=== PATIENT | female | born 1945 | race Two or more races ===

== ENCOUNTER 2019-10-28 18:02 | Inpatient (IN) | payer MEDICARE, OTHER ==
[~2019-10-28] VITALS: Ht 160 cm; Wt 67.4 kg
[2019-10-28] MEDS ORDERED: CHOL3000 PO (18:18)
[2019-10-28] MEDS ORDERED: POTA10CA43 PO (18:18)
[2019-10-28] MEDS ORDERED: GLUC1KIT IJ (18:18)
[2019-10-28] MEDS ORDERED: MELA3TAB63 PO (18:18)
[2019-10-28] MEDS ORDERED: INSU100V10 SQ (18:18)
[2019-10-28] MEDS ORDERED: ATOR40TA PO (18:18)
[2019-10-28] MEDS ORDERED: ESCI10TA PO (18:18)
[2019-10-28] MEDS ORDERED: LOSA50TA39 PO (18:18)
[2019-10-28] MEDS ORDERED: CARV12.52 PO (18:18)
[2019-10-28] MEDS ORDERED: MULT1TAB73 PO (18:18)
[2019-10-28] MEDS ORDERED: ISOS10TA2 PO (18:28)
[2019-10-28] MEDS ORDERED: POLY17PO4 PO (18:28)
[2019-10-28] MEDS ORDERED: DOCU100C36 PO (18:28)
[2019-10-28] MEDS ORDERED: PANT40TA4 PO (18:28)
[2019-10-28] MEDS ORDERED: BISA10SU61 RC (18:28)
[2019-10-28] MEDS ORDERED: TICA90TA PO (18:28)
[2019-10-28] MEDS ORDERED: IPRA0.2S48 IH (18:28)
[2019-10-28] MEDS ORDERED: FERR325T23 PO (18:28)
[2019-10-28] MEDS ORDERED: ACET-2154 PO (18:28)
[2019-10-28 18:29] LABS: BASOPHILS # (AUTO) 0.1 K/uL (0.0-8.0); BASOPHILS % (AUTO) 2.1 % (0.0-2.0); EOSINOPHILS # (AUTO) 0.4 K/uL (0.0-0.7); HEMATOCRIT 27.4 % (31.2-41.9); LYMPHOCYTES # (AUTO) 1.1 K/uL (20.0-40.0); LYMPHOCYTES % (AUTO) 16.7 % (20.5-51.5); MEAN CORPUSCULAR HEMOGLOBIN 31.7 uug (24.7-32.8); MEAN CORPUSCULAR HGB CONC 33 g/dL (32.3-35.6); MEAN CORPUSCULAR VOLUME 96.4 fL (75.5-95.3); MONOCYTES # (AUTO) 0.6 K/uL (2.0-10.0); MONOCYTES % (AUTO) 8.7 % (0.0-11.0); NEUTROPHILS # (AUTO) 4.5 K/uL (1.8-8.9); NEUTROPHILS % (AUTO) 66.5 % (38.5-71.5); PLATELET COUNT (AUTO) 193 K/uL (179-408); RED BLOOD CELL COUNT(AUTO) 2.85 MIL/uL (3.63-4.92); WHITE BLOOD COUNT (AUTO) 6.8 K/uL (3.8-11.8)
[2019-10-28] MEDS ORDERED: NITROGLYCERIN OINT 1 GM PACKET TP ONE ×2 (18:36→18:45)
[2019-10-28] MEDS ORDERED: MORPHINE SULFATE 4 MG/1 ML DISP.SYRIN ONE (18:36)
[2019-10-28] MEDS ORDERED: ONDANSETRON 4 MG/2 ML VIAL ONE (18:36)
[2019-10-28 18:39] LABS: CREATININE 1.1 mg/dL (0.6-1.3); POTASSIUM 4.7 mmol/L (3.5-5.1)
--- NOTE | 2019-10-28 18:44 | NUR ---
Dr. Sha prado from [facility]osp. at 1830. Dr. Pitts requesting to speak with him.
[2019-10-28] MEDS ORDERED: MORPHINE SULFATE 2 MG/1 ML DISP.SYRIN IV ONE (18:45)
[2019-10-28] MEDS ORDERED: ONDANSETRON 4 MG/2 ML VIAL IV ONE (18:45)
[2019-10-28 18:52] LABS: BILIRUBIN,DIRECT 0.2 mg/dL (0.0-0.2); BILIRUBIN,TOTAL 0.7 mg/dL (0.2-1.0); TOTAL PROTEIN, SERUM 6.6 g/dL (6.4-8.2)
--- NOTE | 2019-10-28 19:19 | NUR ---
Paged [employer] for panel call per MD request. Pending call back from Dr. Christian Etienne.
--- NOTE | 2019-10-28 19:30 | NUR ---
Pt is alert and sitting up in bed, in no acute distress. Pt is pending admission at this time. Safe environment implemented.
--- NOTE | 2019-10-28 19:55 | NUR ---
Pt. admitted to Telemetry , under care of Dr. Etienne Belongs List completed Pt aware of plan of care, no acute distress noted.
[2019-10-28 20:39] VITALS: BP 146/42
[2019-10-28] MEDS ORDERED: INSULIN GLARGINE,HUM 300 UNITS/3 ML CARTRIDGE SQ SCH (21:00)
[2019-10-28] MEDS ORDERED: TEMAZEPAM 15 MG CAPSULE PO PRN (21:00)
[2019-10-28] MEDS ORDERED: ONDANSETRON 4 MG/2 ML VIAL IV PRN (21:00)
[2019-10-28] MEDS ORDERED: MELATONIN 3 MG TABLET PO PRN (21:00)
[2019-10-28] MEDS ORDERED: ALBUTEROL SULFATE 2.5 MG/3 ML NEBU NEB PRN (21:00)
[2019-10-28] MEDS ORDERED: ACETAMINOPHEN 325 MG TABLET PO PRN (21:00)
[2019-10-28] MEDS ORDERED: MORPHINE SULFATE 2 MG/1 ML DISP.SYRIN IV PRN (21:00)
[2019-10-28] MEDS ORDERED: DEXTROSE 50% 50 ML DISP.SYRIN IV PRN (21:00)
[2019-10-28] MEDS ORDERED: BISACODYL 10 MG SUPP.RECT RC PRN (21:00)
[2019-10-28] MEDS: TICAGRELOR 90 MG TABLET PO SCH (21:00)
[2019-10-28] MEDS ORDERED: IPRATROPIUM BROMIDE 0.5 MG/2.5 ML NEBU NEB PRN (21:00)
--- NOTE | 2019-10-28 21:30 | NUR ---
Received patient from ER. Dx: CP/CHF Son is at bedside to give PMH, patient is A/Ox2. No signs of acute distress noted. Vitals WNL. No complaints of chest pain or SOB. Heplock on the left hand is intact and patent. Assessment done. Patient and son oriented to room and unit, safety measures initiated. Bed is low and locked, call light within reach, bed alarm on, will continue with admission process.
[2019-10-28] MEDS: BLOOD SUGAR DIAGNOSTIC 1 EACH STRIP VI SCH (21:38)
[2019-10-28] MEDS: ATORVASTATIN 40 MG TABLET PO SCH (21:41)
[2019-10-29] VITALS: BP 151/64
[2019-10-29 04:00] VITALS: BP 157/73
[2019-10-29] MEDS: BLOOD SUGAR DIAGNOSTIC 1 EACH STRIP VI SCH ×4 (06:31→21:21)
[2019-10-29] MEDS: PANTOPRAZOLE SODIUM 40 MG TABLET.DR PO SCH (06:31)
[2019-10-29 06:43] LABS: BASOPHILS # (AUTO) 0.1 K/uL (0.0-8.0); BASOPHILS % (AUTO) 2.2 % (0.0-2.0); EOSINOPHILS # (AUTO) 0.4 K/uL (0.0-0.7); EOSINOPHILS % (AUTO) 6.8 % (0.0-7.0); HEMOGLOBIN 8.9 g/dL (10.9-14.3); LYMPHOCYTES # (AUTO) 1.2 K/uL (20.0-40.0); LYMPHOCYTES % (AUTO) 19.1 % (20.5-51.5); MEAN CORPUSCULAR HEMOGLOBIN 31.9 uug (24.7-32.8); MEAN CORPUSCULAR HGB CONC 33 g/dL (32.3-35.6); MEAN CORPUSCULAR VOLUME 96.4 fL (75.5-95.3); MONOCYTES # (AUTO) 0.6 K/uL (2.0-10.0); MONOCYTES % (AUTO) 9.1 % (0.0-11.0); NEUTROPHILS # (AUTO) 3.9 K/uL (1.8-8.9); NEUTROPHILS % (AUTO) 62.8 % (38.5-71.5); PLATELET COUNT (AUTO) 173 K/uL (179-408); WHITE BLOOD COUNT (AUTO) 6.2 K/uL (3.8-11.8)
[2019-10-29 07:05] LABS: BILIRUBIN,TOTAL 0.6 mg/dL (0.2-1.0); CREATININE 1.1 mg/dL (0.6-1.3); MAGNESIUM 1.8 mg/dL (1.8-2.4); PHOSPHOROUS 3.7 mg/dL (2.5-4.9); POTASSIUM 4.6 mmol/L (3.5-5.1); TOTAL PROTEIN, SERUM 6.5 g/dL (6.4-8.2)
--- NOTE | 2019-10-29 07:20 | NUR ---
RECEIVED PATIENT SLEEPING IN BED. NO ACUTE DISTRESS NOTED AT THIS TIME. BED IN LOWEST POSITION, SIDE RAILS UP X2, CALL LIGHT WITHIN REACH. WILL CONTINUE TO MONITOR.
[2019-10-29 07:25] LABS: THYROID STIMULATING HORMONE 7.841 mIU/mL (0.358-3.740)
[2019-10-29] MEDS ORDERED: TEMAZEPAM 7.5 MG CAPSULE PO PRN (08:00)
[2019-10-29] MEDS: LOSARTAN POTASSIUM 50 MG TABLET PO SCH (08:14)
[2019-10-29] MEDS: MULTIVITAMINS,THERAPEUTIC TABLET PO SCH (08:15)
[2019-10-29] MEDS: CHOLECALCIFEROL 1,000 UNIT TABLET PO SCH (08:15)
[2019-10-29] MEDS: ESCITALOPRAM OXALATE 10 MG TABLET PO SCH (08:15)
[2019-10-29] MEDS: ISOSORBIDE DINITRATE 10 MG TABLET PO SCH ×3 (08:15→17:14)
[2019-10-29] MEDS: FERROUS SULFATE 325 MG TABEC PO SCH ×2 (08:15→17:13)
[2019-10-29] MEDS: DOCUSATE SODIUM 100 MG CAPSULE PO SCH ×2 (08:16→17:13)
[2019-10-29] MEDS: CARVEDILOL 12.5 MG TABLET PO SCH ×2 (08:16→17:13)
[2019-10-29] MEDS: MIRALAX 17 GM POWD.PACK PO SCH ×2 (08:16→17:14)
[2019-10-29] MEDS: TICAGRELOR 90 MG TABLET PO SCH ×2 (08:23→10:43)
[2019-10-29] MEDS ORDERED: [UNRECOGNIZED DRUG - OTHER] PO SCH (09:00)
[2019-10-29] MEDS ORDERED: CHOLECALCIFEROL 3000 UNIT PO SCH (09:00)
[2019-10-29] MEDS: FUROSEMIDE 20 MG/2 ML VIAL IV SCH ×2 (09:12→21:22)
[2019-10-29] MEDS: ASPIRIN 81 MG TAB.CHEW PO SCH (09:12)
[2019-10-29 11:02] VITALS: BP 122/43
[2019-10-29] MEDS: INSULIN REGULAR, HUMAN 300 UNIT/3 ML VIAL SQ PRN ×2 (12:30→21:23)
[2019-10-29 15:24] VITALS: BP 105/48
--- NOTE | 2019-10-29 18:14 | NUR ---
PATIENT RESTED THROUGHOUT THE DAY. PATIENT REPORTED CHEST PAIN , SEEN BY DR MALAGON AND NEW ORDERS FOR ASPIRIN GIVEN. PATIENT REPORTED PAIN AND IMPROVED AND GONE. NO ACUTE DISTRESS NOTED. PATIENT HAD ECHO DONE, AWAITING FOR RESULTS. SAFETY MEASURES PROVIDED. WILL ENDORSE TO ONCOMING NURSE.
--- NOTE | 2019-10-29 19:30 | NUR ---
Received patient awake and alert in bed, no signs of acute distress noted. No complaints of chest pain at this time, no SOB. Heplock on the left hand is intact and patent. Vitals WNL. Safety measures initiated. Bed is low and locked, call light within reach. Will continue to monitor.
[2019-10-29 19:59] VITALS: BP 142/52
[2019-10-29] MEDS ORDERED: TICAGRELOR 90 MG TABLET PO ONE (21:00)
[2019-10-29] MEDS: ATORVASTATIN 40 MG TABLET PO SCH (21:22)
[2019-10-29] MEDS: INSULIN GLARGINE,HUM 300 UNITS/3 ML CARTRIDGE SQ SCH (21:24)
[2019-10-30] VITALS: BP 152/54
[2019-10-30 04:00] VITALS: BP 133/56
--- NOTE | 2019-10-30 06:09 | NUR ---
Patient slept well throughout shift. No distress noted. No complaints of chest pain, vitals WNL. Medications given as ordered and tolerated well. Will endorse to morning shift about Brilitin, son did not come last night. Safety measures given. Will endorse to next shift.
[2019-10-30] MEDS: PANTOPRAZOLE SODIUM 40 MG TABLET.DR PO SCH (06:31)
[2019-10-30 06:53] LABS: BASOPHILS # (AUTO) 0.1 K/uL (0.0-8.0); BASOPHILS % (AUTO) 1.3 % (0.0-2.0); EOSINOPHILS # (AUTO) 0.4 K/uL (0.0-0.7); HEMATOCRIT 27.2 % (31.2-41.9); HEMOGLOBIN 8.9 g/dL (10.9-14.3); LYMPHOCYTES # (AUTO) 0.8 K/uL (20.0-40.0); LYMPHOCYTES % (AUTO) 11.8 % (20.5-51.5); MEAN CORPUSCULAR HEMOGLOBIN 31.6 uug (24.7-32.8); MEAN CORPUSCULAR HGB CONC 33 g/dL (32.3-35.6); MEAN CORPUSCULAR VOLUME 96.3 fL (75.5-95.3); MONOCYTES # (AUTO) 0.6 K/uL (2.0-10.0); MONOCYTES % (AUTO) 8.7 % (0.0-11.0); NEUTROPHILS # (AUTO) 4.7 K/uL (1.8-8.9); NEUTROPHILS % (AUTO) 72.2 % (38.5-71.5); PLATELET COUNT (AUTO) 163 K/uL (179-408); RED BLOOD CELL COUNT(AUTO) 2.83 MIL/uL (3.63-4.92); WHITE BLOOD COUNT (AUTO) 6.6 K/uL (3.8-11.8)
[2019-10-30 06:57] LABS: CREATININE 1.2 mg/dL (0.6-1.3); MAGNESIUM 1.5 mg/dL (1.8-2.4); PHOSPHOROUS 4.5 mg/dL (2.5-4.9); POTASSIUM 3.3 mmol/L (3.5-5.1)
[2019-10-30] MEDS: BLOOD SUGAR DIAGNOSTIC 1 EACH STRIP VI SCH ×4 (07:01→20:54)
--- NOTE | 2019-10-30 07:01 | NUR ---
Blood sugar was 53, gave 2 cups of orange juice, BS is now 86
[2019-10-30 07:19] LABS: THYROID STIMULATING HORMONE 4.162 mIU/mL (0.358-3.740)
[2019-10-30] MEDS: FUROSEMIDE 20 MG/2 ML VIAL IV SCH (08:28)
[2019-10-30] MEDS: DOCUSATE SODIUM 100 MG CAPSULE PO SCH ×2 (08:28→16:55)
[2019-10-30] MEDS: ASPIRIN 81 MG TAB.CHEW PO SCH (08:28)
[2019-10-30] MEDS: ESCITALOPRAM OXALATE 10 MG TABLET PO SCH (08:28)
[2019-10-30] MEDS: MULTIVITAMINS,THERAPEUTIC TABLET PO SCH (08:28)
[2019-10-30] MEDS: FERROUS SULFATE 325 MG TABEC PO SCH (08:29)
[2019-10-30] MEDS: CHOLECALCIFEROL 1,000 UNIT TABLET PO SCH (08:29)
[2019-10-30] MEDS: LOSARTAN POTASSIUM 50 MG TABLET PO SCH (08:31)
[2019-10-30] MEDS: CARVEDILOL 12.5 MG TABLET PO SCH ×2 (08:31→16:57)
[2019-10-30] MEDS: MIRALAX 17 GM POWD.PACK PO SCH ×2 (08:33→16:55)
[2019-10-30] MEDS: ISOSORBIDE DINITRATE 10 MG TABLET PO SCH ×3 (08:43→16:56)
--- NOTE | 2019-10-30 11:00 | NUR ---
POTASSIUM LEVEL IS 3.3 MAG LEVEL IS 1.5 WITH REPLACEMENT LEVELS AND NOTED PATIENT IS ALERT AND AWARE WITH LANGUAGE BARRIER ALL NEEDS ANTICIPATED AND SATISFIED MADE COMFORTABLE AND WILL CONTINUE TO OBSERVE.
[2019-10-30] MEDS ORDERED: POTASSIUM CHLORIDE 20 MEQ TAB.PRT.SR PO ONE (11:15)
[2019-10-30 11:47] VITALS: BP 146/51
[2019-10-30] MEDS: INSULIN REGULAR, HUMAN 300 UNIT/3 ML VIAL SQ PRN ×3 (11:57→20:55)
[2019-10-30] MEDS: MAGNESIUM SULFATE/D5W 100 ML IV SCH ×2 (12:12→13:33)
[2019-10-30] MEDS ORDERED: FERROUS SULFATE 325 MG TABEC PO SCH (13:00)
[2019-10-30 15:51] VITALS: BP 134/50
--- NOTE | 2019-10-30 18:00 | NUR ---
MAGNESSIUM INFUSED ORDERED WITH NO ADVERSE EFFECTS NOTED NO S/S OF HYPO/HYPERGLYCEMIC REACTIONS AT THIS TIME SAFE AND THERAPEUTIC ENVIRONMENT PROVIDED AT ALL TIMES WILL CONTINUE TO OBSERVE.
--- NOTE | 2019-10-30 19:50 | NUR ---
PATIENT ALERT ORIENTED, NO SOB NO CHEST PAIN, PATIENT ON TELE MONITOR SINUS RHYTHM WITH LEFT BUNDLE BRANCH BLOCK. PATIENT HAS NO COMPLAIN OF PAIN AT THIS TIME. PATIENT SATURATING WNL, CONT TO MONITOR.
[2019-10-30 20:35] VITALS: BP 138/58
[2019-10-30] MEDS: ATORVASTATIN 40 MG TABLET PO SCH (20:53)
[2019-10-30] MEDS: INSULIN GLARGINE,HUM 300 UNITS/3 ML CARTRIDGE SQ SCH (20:56)
[2019-10-30] MEDS ORDERED: TICAGRELOR 90 MG TABLET PO ONE (21:00)
[2019-10-31 00:34] VITALS: BP 116/42
[2019-10-31 04:54] VITALS: BP 131/57
[2019-10-31] MEDS: PANTOPRAZOLE SODIUM 40 MG TABLET.DR PO SCH (06:05)
[2019-10-31] MEDS: BLOOD SUGAR DIAGNOSTIC 1 EACH STRIP VI SCH (06:05)
--- NOTE | 2019-10-31 06:34 | NUR ---
PATIENT SLEPT MOST OF THE NIGHT, NO SOB NO CHEST PAIN. PATIENT HAS NO COMPLAIN OF PAIN, PATIENT HAS NO S/S OF HYPO/HYPERGLYCEMIA NOTED, CONT TO MONITOR.
--- NOTE | 2019-10-31 08:00 | NUR ---
IN BED QUIET VERBALLY RESPONDS WHEN SPOKEN TO NO S/S OF P[AIN OR DISCOMFORTS AT THIS TIME ALL NEEDS ANTICIPATED AND SATISFIED MAX ASSIST FOR ALL ADL MADE COMFORTABLE AND WILL CONTINUE TO OBSERVE.
[2019-10-31] MEDS: INSULIN REGULAR, HUMAN 300 UNIT/3 ML VIAL SQ PRN (08:22)
[2019-10-31] MEDS: MULTIVITAMINS,THERAPEUTIC TABLET PO SCH (08:30)
[2019-10-31] MEDS: ASPIRIN 81 MG TAB.CHEW PO SCH (08:30)
[2019-10-31] MEDS: DOCUSATE SODIUM 100 MG CAPSULE PO SCH ×2 (08:30→16:33)
[2019-10-31] MEDS: ESCITALOPRAM OXALATE 10 MG TABLET PO SCH (08:30)
[2019-10-31] MEDS: CHOLECALCIFEROL 1,000 UNIT TABLET PO SCH (08:30)
[2019-10-31] MEDS: CARVEDILOL 12.5 MG TABLET PO SCH ×2 (08:31→16:34)
[2019-10-31] MEDS: LOSARTAN POTASSIUM 50 MG TABLET PO SCH (08:31)
[2019-10-31] MEDS: ISOSORBIDE DINITRATE 10 MG TABLET PO SCH ×3 (08:32→16:35)
[2019-10-31] MEDS: MIRALAX 17 GM POWD.PACK PO SCH ×2 (08:35→16:33)
[2019-10-31] MEDS ORDERED: FERROUS SULFATE 325 MG TABEC PO SCH (09:00)
[2019-10-31] MEDS ORDERED: TICAGRELOR 90 MG TABLET PO ONE (09:00)
[2019-10-31] MEDS ORDERED: FUROSEMIDE 20 MG TABLET PO SCH (09:00)
[2019-10-31 11:00] VITALS: BP 129/48
--- NOTE | 2019-10-31 12:25 | NUR ---
PATIENT SEEN AND EXAMINED BY DR BANDA WITH ORDER FOR STAT BMP TODAY AND NOTED D/C PLANNING TO [facility] [place]
[2019-10-31 12:51] LABS: CARBON DIOXIDE 28 mmol/L (21-32); CHLORIDE 106 mmol/L (98-107); CREATININE 1.2 mg/dL (0.6-1.3); GLUCOSE 153 mg/dL (74-106); POTASSIUM 4.3 mmol/L (3.5-5.1); UREA NITROGEN, BLOOD 20 mg/dL (7-18)
[2019-10-31 13:00] VITALS: BP 130/59
[2019-10-31] MEDS ORDERED: IPRA0.2S6 NEB (13:18)
[2019-10-31] MEDS ORDERED: INSU100V10 SQ (13:18)
[2019-10-31] MEDS ORDERED: ATOR20TA PO (13:18)
[2019-10-31] MEDS ORDERED: ASPI-618 PO (13:18)
[2019-10-31] MEDS ORDERED: FURO20TA4 PO (13:18)
[2019-10-31] MEDS ORDERED: ALBU2.5V7 NEB (13:18)
[2019-10-31] MEDS ORDERED: ACET325T53 PO (13:18)
[2019-10-31] MEDS ORDERED: TEMA7.5C PO (13:18)
--- NOTE | 2019-10-31 13:40 | NUR ---
DISCHARGE ORDER NOTED NOTIFIED PATIENT AND SHE STATED THAT THE DOCTOR HAD TOLD HER THAT SHE WILL NOT BE GOING BACK TO [place] ANYMORE SO I NOTIFIED THE [employer] FIELD MECHANIC TO TALK TO HER.
--- NOTE | 2019-10-31 13:46 | NUR ---
THE MOTOR MECHANIC SPOKE TO PATIENT AND SHE HAS AGREED TO GO BACK TO [facility].WILL ARRANGE TO DISCHARGE.
[2019-10-31 15:00] VITALS: BP 144/60
--- NOTE | 2019-10-31 15:03 | NUR ---
CALLED [facility] AND SPOKE WITH JESENIA AND REPORT GIVEN TO HER FOR CONTINUING CARE CALLED THE AMBULANCE AND THE FIRST AVAILABLE OPENING IS AT 1700.
[2019-10-31 16:35] VITALS: BP 142/61
--- NOTE | 2019-10-31 17:45 | NUR ---
PATIENT DISCHARGED PICKED UP BY THE AMBULANCE IN SATISFACTORY CONDITION WITH DISCHARGE INSTRUCTIONS AND ALL HER PERSONAL BELONGINGS.
[2019-10-31] MEDS ORDERED: ATORVASTATIN 20 MG TABLET PO SCH (21:00)
[2019-10-31] MEDS ORDERED: TICAGRELOR 90 MG TABLET PO SCH (21:00)
== END 2019-10-31 17:45 | DRG 391 ==
LOC: ER 18:04 → TELE3 19:59
PROVIDERS: ADMIT Internal Medicine; ATTEND Internal Medicine
DX: K29.70 Gastritis, unspecified, without bleeding (principal); I50.23 Acute on chronic systolic (congestive) heart failure; K20.9 Esophagitis, unspecified; I11.0 Hypertensive heart disease with heart failure; R07.9 Chest pain, unspecified; I25.10 Atherosclerotic heart disease of native coronary artery without angina pectoris; Z95.5 Presence of coronary angioplasty implant and graft; I08.3 Combined rheumatic disorders of mitral, aortic and tricuspid valves; I44.7 Left bundle-branch block, unspecified; E78.00 Pure hypercholesterolemia, unspecified; E78.5 Hyperlipidemia, unspecified; E83.42 Hypomagnesemia; E87.6 Hypokalemia; E11.9 Type 2 diabetes mellitus without complications; Z79.4 Long term (current) use of insulin; M19.90 Unspecified osteoarthritis, unspecified site; Z74.09 Other reduced mobility; D50.9 Iron deficiency anemia, unspecified; F32.9 Major depressive disorder, single episode, unspecified
CPT/HCPCS: 36415; 70030-TC; 71045; 83550; 83735; 84100; 84443; 85025; 85730; 93005; 93307; A4663; G0378; J1815; J1940; J2270; J2405; J3475; J7050